=== PATIENT | male | born 1990 ===

== ENCOUNTER 2016-07-22 01:59 | Emergency (ER) | payer OTHER ==
[~2016-07-22] VITALS: Ht 170.2 cm; Wt 96.0 kg
[2016-07-22 02:01] VITALS: BP 129/72; PULSE 98; RESP 14; TEMP 97.6; O2SAT 99
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
[2016-07-22] MEDS ORDERED: LIDOCAINE 1%/EPINEPHrine 1:100,000 SOLN 20 ML VIAL INFIL ONE (02:15)
[2016-07-22] MEDS ORDERED: AMOX875T PO (02:43)
[2016-07-22] MEDS ORDERED: AMOXICILLIN 875 MG TAB PO ONE (02:45)
== END 2016-07-22 03:03 | disposition home or self-care (01) ==
LOC: NEPB 01:59
DX: S01.511A Laceration without foreign body of lip, initial encounter (principal)
CPT/HCPCS: 12011